=== PATIENT | male | born 1975 | race Caucasian/White ===

== ENCOUNTER → 2023-05-26 06:20 | Day surgery (SDC) | payer BC, SELFPAY | LOC: GI 06:20 | PROVIDERS: ATTENDING PHYSICIAN Internal Medicine | DX: Z12.11 Encounter for screening for malignant neoplasm of colon (principal); D12.3 Benign neoplasm of transverse colon; D12.7 Benign neoplasm of rectosigmoid junction; Z86.010 Personal history of colon polyps | CPT/HCPCS: 45385; 45380; 88305 ==

== ENCOUNTER 2024-11-24 09:06 | Emergency (ER) | payer BC, SELFPAY ==
[2024-11-24 09:14] VITALS: BP 146/85
--- NOTE | 2024-11-24 10:03 | ED.GENMED ---
History of Present Illness
General
Chief Complaint: Dizziness
Source: patient
Exam Limitations: none
Time Seen by Provider: 11/24/24 10:03
History of Present Illness
History of Present Illness:
49yoM with no significant past medical history presenting for evaluation of diarrhea. Symptoms began about 4 days ago. He reports having 3-4 episodes of watery diarrhea daily. He is also experiencing nausea, headaches, fatigue, and dizziness with
position changes. He was seen at urgent care prior to arrival and his blood pressure was low at 80/55. He was given water to drink and repeat BP was 75/40 so he was sent to the ED for evaluation. Patient is currently in the process of training
for a triathlon. He has been swimming in [place] to prep for this and believes he may have caught an infection from swallowing the river water. He denies any fevers, abdominal pain, chest pain, shortness of breath. He was bradycardic in triage and
he states his resting heart rate is 42-43.
Phy Exam
General Physical Exam
General Presentation: well appearing and no apparent distress
General Skin: warm and dry
General Habitus: normal
General Mental: alert
ENT Exam
ENT Exam: normocephalic
Cardiovascular Exam
Cardiovascular Exam: no murmur and bradycardia
Pulmonary Exam
Pulmonary Exam: lungs clear, no respiratory distress, no rales, no crackles, no rhonchi and no wheezing
Gastrointestinal Exam
Gastrointestinal Exam: non tender, soft and non distended
Neurological Exam
Neurological Exam: alert
Viky Coma Scale
Eye Opening: Spontaneous
Verbal Response: Oriented
Motor Response: Obeys Commands
GCS Total Score: 15
Skin Exam
Skin Exam: normal color and warm/dry
Psychiatric Exam
Psychiatric Exam: normal mood/affect
Course
Orders/Labs/Results
Orders:
Orders
11/24/24 09:20
Electrocardiogram (*1) Urgent
Reason for Study: Vertigo / Dizzy
EKG- Treatment ONCE
11/24/24 10:23
CMP [Comprehensive Metabolic Panel] Urgent
Complete Blood Count/With Diff Urgent
Magnesium Urgent
Comment: ADD ON
11/24/24 10:29
Add On- LAB Urgent
Tests Added?: magnesium
0.9% Sodium Chloride 1000 ml [Nss] 1,000 ml IV BOLUS
11/24/24 10:36
Ova & Parasites Giardia/Crypto AG [Giardia/Cryptosporidium Ag] Urgent
RENETTA Source: Feces/Stool
Specimen Description:
Date Specimen was Collected: 11/24/24
Time Specimen was Collected: 10:34
Stool Culture Urgent
RENETTA Source: Feces/Stool
Specimen Description:
Date Specimen was Collected: 11/24/24
Time Specimen was Collected: 10:34
Abnormal Lab Results
11/24/24
10:23
MCH 31.1 H pg
(27.0-31.0)
Monocytes % 9.4 H %
(1.7-9.3)
Eosinophils % 12.0 H %
(0-6)
Carbon Dioxide 32 H mmol/L
(22-30)
11/24/24 10:23
11/24/24 10:23
Vital Signs
Initial and Last Documented VS:
Initial Vital Signs
Temp Pulse Resp BP Pulse Ox
98 F 52 16 146/85 98
11/24/24 09:14 11/24/24 09:14 11/24/24 09:14 11/24/24 09:14 11/24/24 09:14
Last Documented Vital Signs
Temp Pulse Resp BP Pulse Ox
98 F 49 16 129/83 100
11/24/24 09:14 11/24/24 11:47 11/24/24 11:47 11/24/24 11:47 11/24/24 11:47
MDM/Problems Addressed
Differential Diagnosis Includes:
49yoM here with diarrhea x 4 days. Believes he contracted an infection from swimming [place] the river. Sent here by urgent care for low BP although BP is 146/85 on arrival. He is well appearing in no distress. Abdominal exam is benign. Differential
diagnosis includes but is not limited to: viral gastroenteritis, infectious diarrhea, dehydration
Initial ED plan: Triage EKG shows sinus bradycardia with a HR of 39. First degree heart block noted with otherwise normal intervals. Patient is very physically fit and is training for a triathlon. He reports his resting heart rate is around 42-43.
Will check CBC, CMP, magnesium, and stool studies. IV fluid bolus.
*Pulse Oximetry
SaO2: 98
Oxygen Mode of Delivery: Room air
Patient hypoxic: no
*EKG
Interpreted by ED Provider?: Yes
EKG Intrepretation Date: 11/24/24
Heart Rate: 39
Rate: bradycardiac
Rhythm: sinus
Rudy: normal axis
Interval: first degree heart block
QRS Pattern: normal QRS
Ischemia: no ischemia
*Critical Care Note
Total Time (30-74mins, 75-104mins- exclusive of procedures): Not Applicable
Update Note
Update Note:
Labs unremarkable including normal white count, electrolytes, renal function. Blood pressure stable throughout ED stay. Stool testing sent including stool culture and Giardia/Cryptosporidium. Recommend continued supportive care pending stool test
results. He was instructed to follow-up with his PCP and ED return precautions reviewed. Patient discharged in stable condition.
ED Attending Note
-
Portions of this chart may have been created with voice recognition software.� Occasional wrong word or��sound alike� substitutions may have occurred due to the inherent limitations of voice recognition software.
Discharge Plan
Departure
Patient Disposition: Home (Routine Discharge)
Date of Disposition: 11/24/24
Time of Disposition: 11:35
Patient with high blood pressure during this ER visit?: No
Discharge Problem:
Acute diarrhea
Instructions: Acute Diarrhea
Referrals:
Elizabeth De Santiago CRNP [Family Provider, Internal Medicine]
Activity Restrictions/Additional Instructions:
Drink plenty of fluids and hydrate. Continue eating a bland diet (bananas, rice, applesauce, toast). We will call you if your stool testing comes back positive.
Please follow-up with your family doctor. Return to the ER with any new or worsening symptoms.
Interventions
Interventions:
*Risk Screen - Suicide Last Done: 11/24/24 09:14
*Neglect/Abuse Screening Last Done: 11/24/24 09:14
*Nursing Disposition Last Done: 11/24/24 11:50
ED- Neurological Assessment Last Done: 11/24/24 10:20
ED Swallowing Screen Last Done: 11/24/24 10:20
Discharge Date and Time
Discharge Date/Time: 11/24/24 11:51
Print Language: SENEGALESE
[2024-11-24 10:24] VITALS: BP 137/82
[2024-11-24] MEDS: NSS 1000 IV (10:33)
[2024-11-24 10:35] LABS: Hematocrit 43.5 % (39.0-52.0); Hemoglobin 14.7 g/dL (13.0-18.0); Mean Corp Hgb Conc. 33.8 g/dL (33.0-37.0); Mean Corpuscular Volume 92.0 fL (80.0-94.0); Nucleated Red Blood Cells % 0 % (-); Platelet Count 185 10^3/uL (130-400); Red Cell Dist. Width 12.4 % (11.5-14.5)
[2024-11-24 10:58] LABS: ALT (SGPT) 37 U/L (0-50); AST (SGOT) 30 U/L (17-59); Albumin 4.1 g/dl (3.5-5.0); Alkaline Phosphatase 48 U/L (38-126); Blood Urea Nitrogen 13 mg/dl (9-20); Calcium 9.5 mg/dl (8.4-10.2); Carbon Dioxide 32 mmol/L (22-30); Chloride 101 mmol/L (98-107); Glucose 95 mg/dl (70-99); Magnesium 2.1 mg/dl (1.6-2.3); Potassium 4.9 mmol/L (3.5-5.1); Sodium 136 mmol/L (135-145); Total Protein 6.5 g/dl (6.3-8.2); eGFR > 60.00
[2024-11-24 11:47] VITALS: BP 129/83
== END 2024-11-24 11:51 | disposition home or self-care (01) ==
LOC: EMR 09:06
PROVIDERS: EMERGENCY PHYSICIAN Emergency Medicine; FAMILY PHYSICIAN Nurse Practitioner Adult Health
DX: R19.7 Diarrhea, unspecified (principal); R00.1 Bradycardia, unspecified; I44.0 Atrioventricular block, first degree
CPT/HCPCS: 99284; 96360; 80053; 83735; 85025; 87045; 87046; 87328; 87329; 87427; 93005